=== PATIENT | female | born 1990 | race Caucasian/White ===

== ENCOUNTER 2022-07-19 23:18 | Emergency (ER) | payer MEDICAID, OTHER ==
[~2022-07-19] VITALS: Ht 157.5 cm; Wt 62.6 kg
[2022-07-19 23:55] LABS: HEMATOCRIT 37.1 % (31.2-41.9); MEAN CORPUSCULAR HEMOGLOBIN 31.8 uug (24.7-32.8); MEAN CORPUSCULAR VOLUME 92.4 fL (75.5-95.3); PLATELET COUNT (AUTO) 445 K/uL (179-408)
[2022-07-20] LABS: CREATININE 0.8 mg/dL (0.6-1.3)
[2022-07-20 00:06] LABS: BILIRUBIN,TOTAL 0.3 mg/dL (0.2-1.0); TOTAL PROTEIN, SERUM 7.7 g/dL (6.4-8.2)
--- NOTE | 2022-07-20 00:33 | NUR ---
2330 ambulated to room #5a, informed of plan of care, patient has been seen by ER MD. swabs have been collected and sent to lab. No s/s of any distress noted at this time. Patient awaiting results. Will continue to monitor.
--- NOTE | 2022-07-20 00:56 | NUR ---
MD at bedside talking with patient re: results.
[2022-07-20 01:06] VITALS: BP 112/70
== END 2022-07-20 01:07 | disposition home or self-care (01) ==
LOC: ER 23:40
DX: R05.9 Cough, unspecified (principal); J04.0 Acute laryngitis; Z20.822 Contact with and (suspected) exposure to COVID-19
CPT/HCPCS: 36415; 71045; 85025

== ENCOUNTER 2024-09-28 16:50 | Emergency (ER) | payer MEDICAID, OTHER | END 2024-09-28 17:43 | disposition left against medical advice (07) | LOC: ER 16:50 | DX: Z00.00 Encounter for general adult medical examination without abnormal findings (principal); Z53.21 Procedure and treatment not carried out due to patient leaving prior to being seen by health care provider ==